=== PATIENT | female | born 2000 | race African-American/Black ===

== ENCOUNTER 2022-07-14 10:55 | Emergency (ER) | payer OTHER ==
[~2022-07-14] VITALS: Ht 165.1 cm; Wt 109.0 kg
[2022-07-14 11:02] VITALS: BP 168/105
== END 2022-07-14 16:53 | disposition left against medical advice (07) ==
LOC: ER 10:55
DX: Z53.21 Procedure and treatment not carried out due to patient leaving prior to being seen by health care provider (principal)